=== PATIENT | male | born 1985 | race Caucasian/White ===

== ENCOUNTER 2023-05-27 05:04 | Emergency (ER) | payer MEDICAID, OTHER ==
[~2023-05-27] VITALS: Ht 177.8 cm; Wt 82.0 kg
[2023-05-27 05:09] VITALS: BP 169/104; PULSE 115; RESP 20; TEMP 98.7; O2SAT 96
[2023-05-27] MEDS ORDERED: LORAZEPAM 1MG TABLET PO ONE (05:30)
[2023-05-30] MEDS ORDERED: METR375C2 PO (15:29)
[2023-05-30] MEDS ORDERED: levaquin (15:29)
== END 2023-05-27 06:58 | disposition home or self-care (01) ==
LOC: ER 05:04
DX: F41.9 Anxiety disorder, unspecified (principal); Z86.59 Personal history of other mental and behavioral disorders
CPT/HCPCS: 99283